=== PATIENT | male | born 1990 | race American Indian/Alaskan Native ===

== ENCOUNTER 2016-10-13 03:51 | Emergency (ER) | payer OTHER ==
--- NOTE | 2016-10-13 07:28 | XRay Report ---
LEFT WRIST, 4 views: HISTORY: Pain after fall. A comminuted fracture of the distal radius with intra-articular extension at the radiocarpal joint is identified. There is mild impaction at the fracture site. The distal ulna is intact. The carpal bones are unremarkable. Soft tissue swelling. IMPRESSION: Traumatic fracture, distal left radius. Consultation orthopedics is recommended.
[2016-10-13] MEDS ORDERED: TYLENOL ONE (08:34)
[2016-10-13] MEDS ORDERED: TYLENOL PO ONE (08:38)
[2016-10-13 09:11] VITALS: BP 152/90
[2016-10-13] MEDS ORDERED: NORCO 5/325 PO ONE (09:17)
[2016-10-13] MEDS ORDERED: TRIPLE ANTIBIOTIC TP ONE (09:20)
--- NOTE | 2016-10-13 09:22 | Emergency Department Report ---
Upper Extremity - HPI Chief Complaint: Extremity Injury, Upper Stated Complaint: FALL/LEFT HAND/ARM INJURY Time Seen by Provider: 10/13/16 08:53 Upper Extremity: Left Forearm, Left Wrist Mechanism: Fall Symptoms: Yes Pain with Movement, Yes Limited Range of Movement, Yes Weakness, Yes Swelling, No Deformity, No Numbness Other History: Patient presents after a fall with left wrist pain 10/10 and abrasion to left palm. He also is noted to have elevated blood pressure 173/ 100 which has come down to 152/100. He does admit to history of hypertension but on no medication for this. ED Review of Systems ROS: Stated complaint: FALL/LEFT HAND/ARM INJURY Other details as noted in HPI Constitutional: denies: chills, fever Eyes: denies: eye pain, eye discharge, vision change ENT: denies: ear pain, throat pain Respiratory: denies: cough, shortness of breath, wheezing Cardiovascular: denies: chest pain, palpitations Gastrointestinal: denies: abdominal pain, nausea, diarrhea Genitourinary: denies: urgency, dysuria Musculoskeletal: as per HPI Skin: as per HPI Neurological: denies: headache, weakness, paresthesias ED Past Medical Hx - Past Medical History Previous Medical History?: No - Surgical History Past Surgical History?: No - Social History Smoking Status: Never Smoker Substance Use Type: None - Medications Home Medications: Home Medications Medication Instructions Recorded Confirmed Last Taken Type Latanoprost [Xalatan 0.005% eye 1 drop OU QPM #1 bottle 07/18/13 Unknown Rx drops] HYDROcodone/APAP 5-325 [[place] 1 each PO Q6HR PRN #20 tablet 10/13/16 Unknown Rx 5-325 mg TAB] Upper Extremity Exam - Exam General: Vital signs noted. No distress. Alert and acting appropriately. Palm with moderate abrasion, patient states due to fall. Head and Torso: No HEENT Abnormality, No Neck Tenderness, No Chest/Lungs Abnormality, No Abdominal Tenderness, No Back Tenderness Shoulder Exam: Yes Normal Range of Motion in Shoulder, No Shoulder Tenderness, No Clavicle Tenderness, No Shoulder Deformity, No AC Joint Tenderness Arm Exam: No Arm/Humerus Tenderness, No Arm Deformity Elbow: No Elbow Tenderness, No Normal Range of Motion in Elbow, No Elbow Deformity Forearm: Yes Forearm Tenderness (distal), No Forearm Deformity, No Pain with Pronation, No Pain with Supination Wrist: Yes Wrist Tenderness (moderate swelling to left wrist), Yes Snuffbox Tenderness, Yes Pain with Axial Thumb Compression, No Normal ROM in Wrist, No Wrist Deformity Hand: Yes Normal ROM in Digit(s), No Hand Tenderness, No Hand Deformity, No Digit Tenderness, No Digit(s) Deformity, No Tendon Dysfunction CMS Exam: Yes Broken Skin, Yes Normal Distal Pulses, Yes Normal Capillary Refill , Yes Normal Distal Sensation ED Course Vital Signs 10/13/16 10/13/16 04:28 09:10 Temperature 98.9 F 98.1 F Pulse Rate 67 74 Respiratory 18 18 Rate Blood Pressure 173/100 152/90 [Right] O2 Sat by Pulse 100 95 Oximetry ED Medical Decision Making - Radiology Data LEFT WRIST, 4 views: HISTORY: Pain after fall. A comminuted fracture of the distal radius with intra-articular extension at the radiocarpal joint is identified. There is mild impaction at the fracture site. The distal ulna is intact. The carpal bones are unremarkable. Soft tissue swelling. IMPRESSION: Traumatic fracture, distal left radius. Consultation orthopedics is recommended. - Medical Decision Making She presents after fall with left wrist pain. X-ray shows comminuted distal fracture of the radius. I will give him [place] 5/325 for pain and refer him to orthopedic surgery. We'll also splint left wrist. Critical Care Time: No Critical care attestation.: If time is entered above; I have spent that time in minutes in the direct care of this critically ill patient, excluding procedure time. ED Disposition Clinical Impression: Left radial fracture Disposition: DISCHARGED TO HOME OR SELFCARE Is pt being admited?: No Does the pt Need Aspirin: No Condition: Stable Instructions: Arm Fracture in Adults (ED) Additional Instructions: It is advised that she follow-up as soon as possible with orthopedic surgeon. Not doing so can decrease functionality of left arm, wrist, fingers. This can also cause deformity, and chronic pain. Prescriptions: HYDROcodone/APAP 5-325 [[place] 5-325 mg TAB] 1 each PO Q6HR PRN #20 tablet PRN Reason: Pain Referrals: PRIMARY CARE, [Primary Care Provider] - 3-5 Days Forms: Work/School Release Form(ED) Time of Disposition: 09:30
== END 2016-10-13 10:07 | disposition home or self-care (01) ==
LOC: ED 03:51
DX: S52.572A Other intraarticular fracture of lower end of left radius, initial encounter for closed fracture (principal); I10 Essential (primary) hypertension; W19.XXXA Unspecified fall, initial encounter; Y93.89 Activity, other specified; Y99.9 Unspecified external cause status; Y92.89 Other specified places as the place of occurrence of the external cause
CPT/HCPCS: A6250